=== PATIENT | male | born 1965 | race Caucasian/White ===

== ENCOUNTER 2018-08-10 09:43 | Outpatient (CLI) | payer BC, SELFPAY ==
[2018-08-10 11:28] LABS: Glucose 92 mg/dL (70-100)
== END 2018-08-10 10:03 ==
PROVIDERS: PCP General Practice; Visit Provider General Practice
DX: R73.03 Prediabetes (principal)
CPT/HCPCS: 36415; 82947

== ENCOUNTER 2019-03-30 08:36 | Outpatient (CLI) | payer BC, SELFPAY ==
[2019-03-30 10:00] LABS: Glucose 110 mg/dL (70-100)
== END 2019-03-30 08:56 ==
PROVIDERS: PCP General Practice; Visit Provider General Practice
DX: R73.03 Prediabetes (principal)
CPT/HCPCS: 36415; 82947